=== PATIENT | male | born 1975 | race Caucasian/White ===

== ENCOUNTER 2019-06-13 01:46 | Emergency (ER) | payer OTHER ==
[~2019-06-13] VITALS: Ht 180.3 cm; Wt 83.9 kg
[~2019-06-13 01:46] MED LIST: ACETAMINOPHEN
[2019-06-13 02:35] LABS: AMP/METHAMP POSITIVE (Negative); BARBITURATES Negative (Negative); BENZODIAZEPINES Negative (Negative); COCAINE Negative (Negative); METHADONE Negative (Negative); OPIATES Negative (Negative); PCP POSITIVE (Negative)
[2019-06-13 03:16] VITALS: BP 111/70
== END 2019-06-13 03:16 | disposition home or self-care (01) ==
LOC: ER 01:46
PROVIDERS: Emergency Medicine
DX: F15.10 Other stimulant abuse, uncomplicated (principal); F17.210 Nicotine dependence, cigarettes, uncomplicated; Z90.49 Acquired absence of other specified parts of digestive tract; Z88.0 Allergy status to penicillin